=== PATIENT | female | born 2000 | race Caucasian/White ===

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

== ENCOUNTER 2019-04-09 06:19 | Inpatient (IN) | payer OTHER, BC ==
[2019-04-09 08:03] LABS: Urine Benzodiazepine Screen None Detected (None Detect); Urine Opiates Screen None Detected (None Detect)
[2019-04-09] MEDS ORDERED: Buffered Lidocaine 1% SYRIN* 1 ML/SYRINGE INTRADERM ONE (08:32)
[2019-04-09] MEDS ORDERED: Lactated Ringers 1000 ML Bag* 1,000 ML IV ONE (08:32)
--- NOTE | 2019-04-09 08:47 | HP ---
General Information - Reason for Visit Normal Labor - General Information Maternal Age: 19 Grav: 1 Para: 0 SAB: 0 IEA: 0 Estimated Due Date: 04/10/19 Determined By: Early Ultrasound Maternal Blood Type and Rh: O Positive - Results this Serology/RPR Result: Non-Reactive Rubella Result: Non-Immune HBsAg Result: Negative HIV Result: Negative GBS Culture Result: Negative Past Medical History Delivery History Comment: G1 Pertinent Past Medical History: Non-Contributory Past Medical History Comment: Remote Hx of HSV1 Pertinent Past Surgical History: None - Tonsils has child only Past Surgical History Comment: Tonsils as child, only surgical hx Pertinent Family History: Non-Contributory - Antepartal Records Antepartal Records: Reviewed, Uncomplicated Review of Systems Constitutional: Uncomfortable - Uncomfortable with contractions CV Complaint: No Respiratory: Shortness of Breath: No Gastrointestinal: No Nausea/Vomiting, Normal Bowel Movement Genitourinary: No Dysuria, No Bleeding, No Leaking Fluid - Physiologic Musculoskeletal: No Complaint, No Epigastric Pain Neurological: No Headache, No Visual Changes Movement: Normal Exam Allergies/Adverse Reactions: Allergies No Known Allergies Allergy (Verified 04/09/19 07:39) B{P 132/91 Temp 97.4 Pulse 85 RR 20 Lab Values - Entire Visit: Laboratory Tests 04/09/19 06:35 Urine Opiates Screen None detected Ur Barbiturates Screen None detected Ur Phencyclidine Scrn None detected Ur Amphetamines Screen None detected U Benzodiazepines Scrn None detected Urine Cocaine Screen None detected U Cannabinoids Screen None detected - Measurements Height: 5 ft 2 in Weight: 187 lb Weight in lbs: [phone] Body Mass Index (BMI): 34.2 Pre- Weight: 153 lb 0.013 oz Weight Gained This : 33.999 lbs and 0.003 ozs - Exam Breast: Breast Exam Deferred CVA: No CVA Tenderness Extremities: No Edema Heart: Normal Rhythm/Heart Sounds HEENT: No Significant Findings Lungs: Clear Bilaterally Rectal: Rectal Exam Deferred Reflexes: DTR 2+ Thyroid: No Thyromegaly - Abdominal Exam Abdomen Exam: Non-Tender, Fundal Height Consistent with Dates - Ultrasound/Biophysical Profile Ultrasound Status: Not Done Targeted Exam Findings Estimated Weight: 7#8oz Cervical Exam: 5cm Effacement: 80% Station: -1 Presenting Part: Vertex Membrane Status: Intact Bleeding/Discharge: Bloody Show EFM Findings - External Monitor Findings Baseline Heart Rate: 140 External Monitor Findings: Accelerations Present, No Pattern of Variable or Late Decelerations, Variability Moderate Contractions: Regular, Strong, 45-90 Seconds Assessment/Plan - Plan Plan: Admit - Anticipate Vaginal Delivery - Date/Time of Admission Date of Admission: 04/09/19 Time of Admission: 08:50
[2019-04-09] MEDS ORDERED: Lactated Ringers 1000 ML Bag* 1,000 ML IV SCH ×2 (09:00→13:00)
[2019-04-09 09:22] LABS: ABS Lymphocytes 2.4 10^3/ul (1.0-4.8); ABS Monocytes 0.6 10^3/ul (0-0.8); ABS Neutrophils 6.8 10^3/ul (1.5-7.7); Eosinophil % 0.2 %; Hematocrit 37 % (35-47); Hemoglobin 12.4 g/dL (12.0-16.0); Lymphocyte % 24.8 %; Mean Corpuscular HGB Conc 34 g/dL (31-36); Mean Corpuscular Hemoglobin 29 pg (27-31); Mean Corpuscular Volume 85 fL (80-97); Mean Platelet Volume 9.5 fL (7.4-10.4); Platelet Count 167 10^3/uL (150-450); Red Blood Count 4.34 10^6 /uL (3.70-4.87); Red Cell Distribution Width 15 % (10-15); White Blood Count 9.8 10^3/uL (3.5-10.8)
[2019-04-09] MEDS ORDERED: Oxytocin in LR* 0 UNITS/0 ML BAG IVPB ONE (11:16)
[2019-04-09] MEDS ORDERED: Lidocaine 1% INJ* 10 MG/ML 30 ML SDV ONE (12:23)
[2019-04-09] MEDS ORDERED: OXYTOCIN* 10 UNITS/ML 1 ML VIAL ONE (12:23)
[2019-04-09] MEDS ORDERED: Glycerin ADULT SUPP PR PRN (12:38)
[2019-04-09] MEDS ORDERED: Acetaminophen TAB* 325 MG PO PRN (12:38)
[2019-04-09] MEDS ORDERED: Dibucaine 1% 28.35 GM TUBE PR PRN (12:38)
[2019-04-09] MEDS ORDERED: OXYTOCIN* 10 UNITS/ML 1 ML VIAL IM ONE (12:38)
[2019-04-09] MEDS ORDERED: Witch Hazel PAD* JAR TOPICAL PRN (12:38)
[2019-04-09] MEDS ORDERED: Witch Hazel PAD* JAR ONE (12:39)
[2019-04-09] MEDS ORDERED: Dibucaine 1% 28.35 GM TUBE ONE (12:39)
--- NOTE | 2019-04-09 12:44 | PROCNOTE ---
[facility] OB: Delivery Note - Delivery A Date of : 04/09/19 Time of : 12:00 [place] Sex: Male Weight at : 6 lb 5 oz Score 1 Minute: 8 Score 5 Minutes: 10 Gestational Age in Weeks and Days at Delivery: 39 Weeks and 6 Days Delivery Method: Spontaneous Vaginal Labor: Spontaneous Did Patient attempt ?: N/A, No Previous Amniotic Fluid: Clear Estimated Blood Loss: 400 Anesthesia/Analgesia: Nitrous-Labor Anesthesia Comment: Local for repair Delivered By: Jose Cooper JR - Nursery Level of Nursery: Regular/Bedside - Perineum Perineal Injury: 2nd Degree - repaired with 2-0 Vicryl Perineal Repair: By Delivering Practioner - Events Delivery Events of Note: Pitocin Only After Delivery, Supplemental O2 to Mother - Additional Delivery Notes Additional Delivery Notes: 19 y/o G1 presents in spontaneous labor. AROM'd at 7cm. Progressed to fully dilated. Maternal administration nitrous for pain relief. Baby delivered vertex, MARJORIE. 's 8 and 10. Delayed cord clamping performed. Baby directly to mother. IV fell out during delivery, Pitocin 10 U IM given. Placenta delivered spontaneously and intact. 1% Epi local administered for repair of 2nd degree. At time of this note mother and baby doing well.
[2019-04-09] MEDS ORDERED: Simethicone TAB* 80 MG TAB.CHEW PO SCH (17:30)
[2019-04-09] MEDS: Docusate CAP* 100 MG PO SCH ×2 (18:56→20:53)
[2019-04-09] MEDS: Ibuprofen TAB* 600 MG PO PRN (23:18)
[2019-04-10 06:28] LABS: ABS Basophils 0.1 10^3/ul (0-0.2); ABS Lymphocytes 2.7 10^3/ul (1.0-4.8); ABS Monocytes 0.7 10^3/ul (0-0.8); Eosinophil % 0.2 %; Hematocrit 31 % (35-47); Hemoglobin 10.3 g/dL (12.0-16.0); Lymphocyte % 23.1 %; Mean Corpuscular HGB Conc 34 g/dL (31-36); Mean Corpuscular Hemoglobin 29 pg (27-31); Mean Corpuscular Volume 85 fL (80-97); Mean Platelet Volume 8.9 fL (7.4-10.4); Nucleated Red Blood Cells % 0.1; Platelet Count 134 10^3/uL (150-450); Red Blood Count 3.61 10^6 /uL (3.70-4.87); Red Cell Distribution Width 15 % (10-15); White Blood Count 11.5 10^3/uL (3.5-10.8)
[2019-04-10] MEDS: Docusate CAP* 100 MG PO SCH ×3 (08:03→20:07)
[2019-04-10] MEDS: Ibuprofen TAB* 600 MG PO PRN ×3 (08:03→20:07)
[2019-04-10] MEDS ORDERED: Ferrous Gluconate TAB* 324 MG TAB PO SCH (09:00)
[2019-04-11] MEDS: Ibuprofen TAB* 600 MG PO PRN ×2 (02:28→08:31)
[2019-04-11 08:00] VITALS: BP 110/83
[2019-04-11] MEDS: Docusate CAP* 100 MG PO SCH (08:32)
--- NOTE | 2019-04-11 09:57 | PTEDU ---
Patient Name: JIMMIE HOLDER JIMMIE HOLDER selected video: Never Ever Shake a Baby to view on 04/11/2019 at 9:55:10 AM bel jackson [id number]
[2019-04-11] MEDS ORDERED: Tetan/Diph/Pertus SYR(Tdap)* 0.5 ML SYR(BOOSTRIX) use SYR IM ONE ×2 (12:39→15:00)
[2019-04-11] MEDS ORDERED: Measles, Mumps,Rubella VACC* 0.5 ML/VIAL ONE (12:40)
[2019-04-11] MEDS ORDERED: Measles, Mumps,Rubella VACC* 0.5 ML/VIAL SUBCUT ONE (15:00)
== END 2019-04-11 14:40 | disposition home or self-care (01) | DRG 560 ==
LOC: MCHOBOUT 06:19 → MCHOB 08:38
PROVIDERS: ADMIT Obstetrics & Gynecology; ATTEND Obstetrics & Gynecology
PROC: 10E0XZZ Delivery of Products of Conception, External Approach (ICD-10-PCS; principal; 2019-04-09)
PROC: 0KQM0ZZ Repair Perineum Muscle, Open Approach (ICD-10-PCS; 2019-04-09)
DX: O69.81X0 Labor and delivery complicated by cord around neck, without compression, not applicable or unspecified (principal); Z37.0 Single live birth; O77.0 Labor and delivery complicated by meconium in amniotic fluid; O70.1 Second degree perineal laceration during delivery; Z3A.39 39 weeks gestation of pregnancy
CPT/HCPCS: 36415; 80307; 85025; 86850; 86900; 86901; 90707; 90715; A9270-GY; J2590

== ENCOUNTER 2023-08-13 18:13 | Inpatient (IN) ==
[2023-08-13] MEDS ORDERED: Buffered Lidocaine 1% SYRIN 1 ml INTRADERM ONE (18:48)
[2023-08-13] MEDS ORDERED: Lactated Ringers 1000 ml BAG 1,000 ML IV ONE (21:58)
[2023-08-13] MEDS ORDERED: Lidocaine 1% VIAL 10 MG/ML 30 ML VIAL INJ PRN (21:58)
[2023-08-13] MEDS ORDERED: Lactated Ringers 1000 ml BAG 1,000 ML IV SCH (22:00)
[2023-08-13 22:49] LABS: Urine Benzodiazepine Screen None Detected (None Detect); Urine Cannabinoids Screen None Detected (None Detect); Urine Opiates Screen None Detected (None Detect)
[2023-08-14 02:49] LABS: ABS Monocytes 0.8 10^3/uL (0.0-0.9); ABS Neutrophils 13.9 10^3/uL (1.5-7.6); Eosinophil % 0.1 %; Hematocrit 39.9 % (35-45); Hemoglobin 13.5 g/dL (11.5-14.3); Lymphocyte % 12.1 %; Mean Corpuscular Hemoglobin 28.8 pg (27-33); Mean Corpuscular Hgb Conc 33.8 g/dL (31-36); Mean Corpuscular Volume 85.1 fL (80-97); Mean Platelet Volume 9.5 fL (7.5-11.2); Platelet Count 188 10^3/uL (150-450); Red Blood Count 4.69 10^6/uL (3.63-4.92); Red Cell Distribution Width 13.9 % (12-17); White Blood Count 16.8 10^3/uL (3.8-11.8)
[2023-08-14] MEDS ORDERED: fentaNYL 100 mcg/2 ml 50 MCG/ML VIAL ONE (03:22)
[2023-08-14] MEDS ORDERED: Bupivacaine 0.25% SDV PF 10 ML VIAL INJ ONE (03:22)
[2023-08-14] MEDS ORDERED: Lactated Ringers 1000 ml BAG 1,000 ML IV ONE (04:06)
[2023-08-14] MEDS ORDERED: Lactated Ringers 1000 ml BAG 500 ML IV PRN ×2 (04:06)
[2023-08-14] MEDS ORDERED: Famotidine IV 10 MG/ML 2 ml VIAL (20 mg) IV PRN (04:06)
[2023-08-14] MEDS ORDERED: Sodium Citrate/Citric Acid LIQ 15 ML UDC PO PRN (04:06)
[2023-08-14] MEDS ORDERED: Phenylephrine 40 mcg/mL 10mL (400mcg) SYRINGE IV PUSH PRN ×2 (04:06)
[2023-08-14] MEDS ORDERED: OBEPIDURAL (200 ML) 200 ML EPIDURAL SCH (05:00)
[2023-08-14] MEDS ORDERED: Lactated Ringers 1000 ml BAG 1,000 ML IV SCH ×2 (05:00→07:00)
[2023-08-14] MEDS ORDERED: Oxytocin in LR 20,000 MILLI.UNIT/1,000 ML BAG IV ONE (06:15)
[2023-08-14] MEDS ORDERED: Witch Hazel PAD JAR TOPICAL PRN (06:51)
[2023-08-14] MEDS ORDERED: Glycerin ADULT 2.4 gm SUPP PR PRN (06:51)
[2023-08-14] MEDS ORDERED: Oxytocin in LR 20,000 MILLI.UNIT/1,000 ML BAG IV SCH (07:00)
[2023-08-14] MEDS ORDERED: Influenza vaccine *QUAD* *2023-24* 0.5 ML SYRINGE IM ONE (09:00)
[2023-08-14] MEDS: Dibucaine 1% OINT 28.35 GM TUBE PR PRN (09:32)
[2023-08-15 07:34] LABS: ABS Basophils 0.1 10^3/uL (0.0-0.1); ABS Lymphocytes 3.3 10^3/uL (1.0-4.8); ABS Monocytes 0.8 10^3/uL (0.0-0.9); ABS Neutrophils 7.2 10^3/uL (1.5-7.6); Eosinophil % 0.2 %; Hematocrit 29.7 % (35-45); Hemoglobin 10.1 g/dL (11.5-14.3); Lymphocyte % 28.8 %; Mean Corpuscular Hemoglobin 29.3 pg (27-33); Mean Corpuscular Hgb Conc 34.1 g/dL (31-36); Mean Platelet Volume 8.8 fL (7.5-11.2); Platelet Count 141 10^3/uL (150-450); Red Blood Count 3.45 10^6/uL (3.63-4.92); Red Cell Distribution Width 13.7 % (12-17); White Blood Count 11.3 10^3/uL (3.8-11.8)
[2023-08-15 09:19] VITALS: BP 108/71
[2023-08-15] MEDS: Dibucaine 1% OINT 28.35 GM TUBE PR PRN (12:18)
== END 2023-08-15 13:54 | disposition home or self-care (01) | DRG 560 ==
LOC: MCHOBOUT 18:13 → MCHOB 20:33
PROVIDERS: ADMIT Obstetrics & Gynecology; ATTEND Midwife